=== PATIENT | female | born 1980 | race African-American/Black ===

== ENCOUNTER 2017-05-06 15:37 | Emergency (ER) | payer OTHER, SELFPAY | END 2017-05-06 16:05 | disposition home or self-care (01) | LOC: NAV ERS 15:37 | DX: S16.1XXA Strain of muscle, fascia and tendon at neck level, initial encounter (principal); I10 Essential (primary) hypertension; E03.9 Hypothyroidism, unspecified; F17.210 Nicotine dependence, cigarettes, uncomplicated; X50.0XXA Overexertion from strenuous movement or load, initial encounter | CPT/HCPCS: 99283 ==